=== PATIENT | male | born 1970 | race Caucasian/White ===

== ENCOUNTER 2019-08-01 22:36 | Emergency (ER) | payer OTHER ==
[2019-08-01] MEDS ORDERED: LIDOCAINE 1% W/EPI 1:100,000 MDV 20 ML VIAL ONE (22:51)
[2019-08-01] MEDS ORDERED: CEFAZOLIN/SWI 1gm 1 GM/10 ML SYR ONE (23:00)
[2019-08-01] MEDS ORDERED: NA CHLORIDE 0.9% 1,000 ML ONE (23:01)
[2019-08-01 23:27] LABS: Urine Blood NEGATIVE (NEG); Urine Glucose NEGATIVE (NEG); Urine Protein NEGATIVE (NEG); Urine Specific Gravity <1.005 (1.005-1.030); Urine pH 5.5 (5.0-7.0)
[2019-08-01 23:28] LABS: Absolute Lymphocytes (CBC) 1.5 K/uL (0.7-4.9); Basophils % 0.4 % (0-1.3); Hematocrit 43.9 % (39.6-49.0); Lymphocytes % 9.8 % (15.3-44.8); MPV 9.1 fL (7.6-11.3); RBC Red Blood Cell Count 4.86 M/uL (4.33-5.43)
[2019-08-01 23:45] LABS: Albumin 4.2 g/dL (3.4-5.0); Bilirubin Direct 0.2 mg/dL (0-0.2); Bilirubin Total 0.7 mg/dL (0.2-1.0); Potassium 3.6 mmol/L (3.5-5.1); Protein, Total 7.7 g/dL (6.4-8.2)
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
[2019-08-02] MEDS ORDERED: AMOX/K CLAV 875 MG TAB ONE (01:25)
[2019-08-02 02:12] VITALS: TEMP 98.6
[2019-08-02 02:15] VITALS: BP 130/76; O2SAT 98
--- NOTE | 2019-08-02 12:59 | RAD REPORT ---
EXAM DESCRIPTION: RAD - Tib Fib Right - 08/02/2019 12:50 am CLINICAL HISTORY: PAIN COMPARISON: No comparisons FINDINGS: No fracture or dislocation seen.
--- NOTE | 2019-08-02 13:00 | RAD REPORT ---
EXAM DESCRIPTION: RAD - Shoulder Left 2 View - 08/02/2019 12:50 am CLINICAL HISTORY: PAIN COMPARISON: No comparisons FINDINGS: No fracture or dislocation seen.
--- NOTE | 2019-08-02 13:00 | RAD REPORT ---
EXAM DESCRIPTION: RAD - Hand Right 3 View - 08/02/2019 12:50 am CLINICAL HISTORY: PAIN COMPARISON: No comparisons FINDINGS: No fracture or dislocation seen.
--- NOTE | 2019-08-04 13:48 | RAD REPORT ---
EXAM DESCRIPTION: CT Head C-Spine chest, abdomen, pelvis W Con CLINICAL HISTORY: 49 years Male PAIN TECHNIQUE: Contiguous axial CT images obtained through the brain and cervical spine without IV contr ast. Coronal and sagittal reformatted images also provided. Axial images acquired through the chest, abdomen, and pelvis after the administration of intravenous contrast. Coronal and sagittal reformatted images also provided. This CT exam was performed according to our departmental dose-optimization program, which includes on e or more of the following dose reduction techniques: automated exposure control, adjustment of the m A and/or kV according to patient size, and/or use of iterative reconstruction technique. COMPARISON: No prior exams provided for comparison. FINDINGS: There is no acute skull fracture, intracranial hemorrhage, extraaxial collection, or acute transcortical infarction. The ventricles are normal in size and contour without mass effect or midli ne shift. Severe left frontal, maxillary, and anterior ethmoid sinusitis. The remainder of the paranasal sinuse s and mastoid air cells are clear. There is no acute cervical fracture or spondylolisthesis. Vertebral body and disc space heights are preserved without aggressive osseous lesion. There is mild multilevel uncovertebral arthrosis resulting in multilevel left neural foraminal narrowing. No centra l canal stenosis in the cervical spine. No prevertebral or paraspinal soft tissue swelling. There are is no acute fracture in the chest or thoracic spine. There is no mediastinal hematoma, pe ricardial effusion, pleural effusion, or pneumothorax. The heart is normal in size and there is no thoracic aortic aneurysm or dissection. Calcified granulomata. The lungs are otherwise clear withou t focal consolidation. No enlarged mediastinal lymph nodes. The central airways are patent. There are no acute lumbar or pelvic fractures. The liver, biliary tree, gallbladder, pancreas, sple en, adrenal glands, kidneys, and urinary bladder demonstrate no acute findings. There is no retrope ritoneal hemorrhage, ascites, or free intraperitoneal air. The abdominal aorta and its branches are normal. There is no bowel obstruction or wall thickening. IMPRESSION: No acute injury in the head, cervical spine, chest, abdomen, or pelvis. Severe left paranasal sinusitis. Electronically signed by: Sarah Jeff MD 08/02/2019 12:16 AM SENIOR WEB DEVELOPER Due to temporary technical issues with the PACS/Fluency reporting system, reports are being signed by the in house radiologist as a courtesy to ensure prompt reporting. The interpreting radiologist is f ully responsible for the content of the report.
== END 2019-08-02 01:29 | disposition home or self-care (01) ==
LOC: ER 22:36
PROC: 0JQ10ZZ Repair Face Subcutaneous Tissue and Fascia, Open Approach (ICD-10-PCS; principal; 2019-08-01)
DX: S01.81XD Laceration without foreign body of other part of head, subsequent encounter (principal); S61.411A Laceration without foreign body of right hand, initial encounter; S46.012A Strain of muscle(s) and tendon(s) of the rotator cuff of left shoulder, initial encounter; J01.90 Acute sinusitis, unspecified; M25.512 Pain in left shoulder; V92.03XA Drowning and submersion due to fall off other powered watercraft, initial encounter; Y93.89 Activity, other specified; Y92.9 Unspecified place or not applicable
CPT/HCPCS: 96365; 96361; 85025; 80048; 36415; 86900; 86850; 86901; 80076; 81003; 83690; 70450; 72125; 71260; 74177; 73130; 73030; 73590; 99285; 12011; Q9967; J0690; J7030